=== PATIENT | female | born 1990 | race Caucasian/White ===

== ENCOUNTER 2020-11-28 20:10 | Emergency (ER) | payer OTHER ==
[~2020-11-28 20:10] MED LIST: FLAGYL500 MG PO; LEVAQUIN750 MG PO
[2020-11-28 21:54] LABS: HEMOGLOBIN 12.4 gm/dl (12.3-15.3); RED BLOOD COUNT 3.89 M/UL (4.00-5.10); WHITE BLOOD COUNT 7.2 K/UL (4.5-11.0)
[2020-11-28 22:13] LABS: BUN/CREATININE RATIO 15 (0-10)
[2020-11-29] MEDS ORDERED: ZOFRAN ODT 4 MG4 MG PO (02:37)
[2020-11-29] MEDS ORDERED: PREDNISONE 50 M50 MG PO (02:37)
[2020-11-29] MEDS ORDERED: BENTYL 20MG TAB20 MG PO (02:37)
[2020-11-29] MEDS ORDERED: LODINE CAP 300300 MG PO (02:37)
== END 2020-11-29 03:15 | disposition home or self-care (01) ==
LOC: ER1 20:10
PROVIDERS: Physician Assistant
DX: K52.9 Noninfective gastroenteritis and colitis, unspecified (principal)
CPT/HCPCS: 80053; 81001; 82150; 83690; 84703; 85025; 99284; Q9967

== ENCOUNTER 2021-01-17 14:32 | Emergency (ER) | payer OTHER ==
[~2021-01-17 14:32] MED LIST changes: +BENTYL 20MG TAB20 MG PO; +LODINE CAP 300300 MG PO; +PREDNISONE 50 M50 MG PO; +ZOFRAN ODT 4 MG4 MG PO
[2021-01-17 16:59] LABS: HEMOGLOBIN 13.6 gm/dl (12.3-15.3); RED BLOOD COUNT 4.19 M/UL (4.00-5.10); WHITE BLOOD COUNT 3.4 K/UL (4.5-11.0)
[2021-01-17 17:21] LABS: BUN/CREATININE RATIO 14 (0-10)
[2021-01-17] MEDS ORDERED: ZOFRAN4 MG PO (17:38)
== END 2021-01-17 17:55 | disposition home or self-care (01) ==
LOC: ER1 14:32
PROVIDERS: Physician Assistant
DX: R10.84 Generalized abdominal pain (principal); R11.2 Nausea with vomiting, unspecified; R19.7 Diarrhea, unspecified; E03.9 Hypothyroidism, unspecified; R51.9 Headache, unspecified; J45.909 Unspecified asthma, uncomplicated; Z79.899 Other long term (current) drug therapy
CPT/HCPCS: 80053; 81001; 83690; 84703; 85025; 96374; 96375; 99284; J1200; J1885; J2765; J7030

== ENCOUNTER → 2021-04-20 | Outpatient (CLI) | payer OTHER ==
[~2021-04-20] MED LIST changes: +ZOFRAN4 MG PO
[2021-04-20 14:07] LABS: HEMOGLOBIN 12.2 gm/dl (12.3-15.3); RED BLOOD COUNT 3.83 M/UL (4.00-5.10); WHITE BLOOD COUNT 3.2 K/UL (4.5-11.0)
[2021-04-21 08:15] LABS: HBSAG SCREEN Negative (Negative); HEP A AB, IGM Negative (Negative); HEP B CORE AB, IGM Negative (Negative); HEP C VIRUS AB <0.1 (0.0-0.9)
== END ==
LOC: LAB 13:07
PROVIDERS: Internal Medicine Gastroenterology
DX: K51.00 Ulcerative (chronic) pancolitis without complications (principal)
CPT/HCPCS: 36415; 80074; 81479; 83520; 85027; 86140; 88346